=== PATIENT | female | born 1970 | race African-American/Black ===

== ENCOUNTER 2016-05-29 16:34 | Emergency (ER) | payer OTHER ==
[~2016-05-29 16:34] MED LIST: ALBUTEROL17 GM INH; ALL DAY ALLERGY10 M2 PO; AMLODIPINE BESYL5 MG PO; ATARAX PO; BENADRYL25 M3 PO; BENTYL10 MG PO; CELEXA20 M1; EPIPEN0.3 MG/0.1 IM; HCTZ; IBUPROFEN800 MG PO; LORTAB 10-5001 EACH PO; LORTAB 7.5-3251 EACH PO; LOTRIMIN 1% CR30 GM EXT; NORVASC PO; ORUDIS75 M1 DOB; PEPCID AC20 M2 PO; PHENERGAN25 MG PO; PREDNISONE PO; PROCTOFOAM-HC F10 GM PR; ROBAXIN500 MG PO; ROBITUSSIN A-C-S1 ML PO; STERAPRED5 MG/DOSE1 PO; TRAMADOL HCL50 M1 PO; VICODIN 5/1 TAB 5/50 PO; ZITHROMAX1 G/PKT PO
== END 2016-05-29 16:56 | disposition home or self-care (01) ==
LOC: CFTX 16:34
DX: S83.91XA Sprain of unspecified site of right knee, initial encounter (principal); I10 Essential (primary) hypertension; F17.210 Nicotine dependence, cigarettes, uncomplicated; Z98.51 Tubal ligation status; Z98.890 Other specified postprocedural states; Z91.013 Allergy to seafood; Z88.8 Allergy status to other drugs, medicaments and biological substances; Z88.1 Allergy status to other antibiotic agents
CPT/HCPCS: 29530; 96372; 99283; J1885